=== PATIENT | female | born 1980 | race Caucasian/White ===

== ENCOUNTER 2021-10-02 23:05 | Day surgery (SDC) | payer OTHER ==
[~2021-10-02] VITALS: Ht 165 cm; Wt 66.5 kg
[2021-10-02] MEDS ORDERED: DEXT10TA9 PO (23:24)
--- NOTE | 2021-10-02 23:53 | ED Abdominal Pain ---
General Chief Complaint: Abdominal/GI Problems Stated Complaint: ABD PAIN,NAUSEA,LIGHTHEADED Nursing Triage Note: interittant abdominal pain, nausea, since 1700 Source of Information: Patient, Family Exam Limitations: No Limitations History of Present Illness Date Seen by Provider: Oct 02, 2021 Time Seen by Provider: 23:40 Initial Comments Patient is a 41-year-old female who presents to the emergency department today with a chief complaint of lower abdominal pain/cramping, nausea. Patient states onset of nausea was at about 5:00 this evening. She took some Zofran, 8 mg and lay down to take a nap. She woke up and had an urge to urinate. She describes having a syncopal episode where her head got tingly she felt hot and she passed out in the bathroom floor. She did not injure herself. Patient states she has not had any diarrhea, she does not have the urge to have a bowel movement. Her last normal bowel movement was 2 days ago. Nonblack nonbloody. She has had a hysterectomy. No history of colon disorders that she is aware of. She did take some ibuprofen or "dual action" ibuprofen prior to arrival. No recent fevers but she does feel chilled. No cough or congestion. No shortness of breath. She is still slightly nauseated and she states her pain gets worse when she stands up and moves around. She denies any abnormal vaginal discharge. She still has her appendix and her gallbladder. She has had a partial hysterectomy. All other review of systems reviewed and negative except as stated. Timing/Duration: 4-6 Hours Severity/Quality: Moderate Location: Other (lower abdomen) Modifying Factors: Improves With Other (standing up worsens symptoms; complains of dry mouth) Associated Symptoms: Nausea/Vomiting, Other (syncopal episode) Allergies and Home Medications Allergies Coded Allergies: No Known Drug Allergies (Unverified , 10/02/21) Patient Home Medication List Home Medication List Reviewed: Yes Dextroamphetamine/Amphetamine (Adderall 10 mg Tablet) 10 Mg Tablet, Unknown Dose PO, (Reported) Entered as Reported by: MICHELLE LOMAX on 10/02/21 2670 Last Action: New Order Review of Systems Review of Systems Constitutional: see HPI EENTM: Other (dry mouth) Respiratory: No Symptoms Reported Cardiovascular: No Symptoms Reported Gastrointestinal: Abdominal Pain (lower), Nausea Genitourinary: Urgency Musculoskeletal: no symptoms reported Skin: no symptoms reported Psychiatric/Neurological: Other (syncopla episode) All Other Systems Reviewed Negative Unless Noted: Yes Past Shfrvob-Fceyco-Xiuzsv Hx Patient Social History Tobacco Use?: No Substance use?: No Alcohol Use?: Yes Alcohol type: Hard Liquor Alcohol Frequency: Couple times a week Pt feels they are or have been: No Past Medical History Surgery/Hospitalization HX: partial hysto., ovarian cyst, htn, adhd Physical Exam Vital Signs Vital Signs - First Documented 10/02/21 23:15 Temp 36.0 Pulse 66 Resp 20 B/P (MAP) 103/72 (82) Pulse Ox 100 O2 Delivery Room Air Capillary Refill : Less Than 3 Seconds Height/Weight/BMI Height: '" Weight: lbs. oz. kg; 23.00 BMI Method: General Appearance: WD/WN, no apparent distress HEENT: other (dry oral mucosa) Neck: normal inspection Respiratory: lungs clear, normal breath sounds, no respiratory distress, no accessory muscle use Cardiovascular: regular rate, rhythm (70's) Gastrointestinal: soft, tenderness (suprapubic, RLQ and LLQ; normal bowel sounds) Extremities: normal range of motion, normal inspection Neurologic/Psychiatric: alert, normal mood/affect, oriented x 3 Skin: normal color, warm/dry Progress/Results/Core Measures Results/Orders Lab Results Laboratory Tests Test 10/02/21 23:22 Range/Units White Blood Count 14.2 H 4.3-11.0 10^3/uL Red Blood Count 4.03 3.80-5.11 10^6/uL Hemoglobin 12.1 11.5-16.0 g/dL Hematocrit 37 35-52 % Mean Corpuscular Volume 92 80-99 fL Mean Corpuscular Hemoglobin 30 25-34 pg Mean Corpuscular Hemoglobin Concent 33 32-36 g/dL Red Cell Distribution Width 12.6 10.0-14.5 % Platelet Count 308 130-400 10^3/uL Mean Platelet Volume 9.1 9.0-12.2 fL Immature Granulocyte % (Auto) 0 % Neutrophils (%) (Auto) 90 H 42-75 % Lymphocytes (%) (Auto) 7 L 12-44 % Monocytes (%) (Auto) 3 0-12 % Eosinophils (%) (Auto) 0 0-10 % Basophils (%) (Auto) 0 0-10 % Neutrophils # (Auto) 12.7 H 1.8-7.8 10^3/uL Lymphocytes # (Auto) 0.9 L 1.0-4.0 10^3/uL Monocytes # (Auto) 0.5 0.0-1.0 10^3/uL Eosinophils # (Auto) 0.0 0.0-0.3 10^3/uL Basophils # (Auto) 0.0 0.0-0.1 10^3/uL Immature Granulocyte # (Auto) 0.1 0.0-0.1 10^3/uL Neutrophils % (Manual) 71 % Lymphocytes % (Manual) 7 % Band Neutrophils 17 % Urine Color YELLOW Urine Clarity CLEAR Urine pH 8.0 5-9 Urine Specific [place] 1.015 L 1.016-1.022 Urine Protein 1+ H NEGATIVE Urine Glucose (UA) NEGATIVE NEGATIVE Urine Ketones 1+ H NEGATIVE Urine Nitrite NEGATIVE NEGATIVE Urine Bilirubin NEGATIVE NEGATIVE Urine Urobilinogen 1.0 < = 1.0 MG/DL Urine Leukocyte Esterase NEGATIVE NEGATIVE Urine RBC (Auto) NEGATIVE NEGATIVE Urine RBC 0-2 /HPF Urine WBC 5-10 H /HPF Urine Squamous Epithelial Cells 0-2 /HPF Urine Crystals NONE /LPF Urine Bacteria FEW H /HPF Urine Casts PRESENT /LPF Urine Hyaline Casts 0-2 H /LPF Urine Mucus LARGE H /LPF Urine Culture Indicated YES Sodium Level 138 135-145 MMOL/L Potassium Level 3.5 L 3.6-5.0 MMOL/L Chloride Level 102 98-107 MMOL/L Carbon Dioxide Level 24 21-32 MMOL/L Anion Gap 12 5-14 MMOL/L Blood Urea Nitrogen 18 7-18 MG/DL Creatinine 0.78 0.60-1.30 MG/DL Estimat Glomerular Filtration Rate 81 BUN/Creatinine Ratio 23 Glucose Level 139 H 70-105 MG/DL Calcium Level 8.8 8.5-10.1 MG/DL Corrected Calcium 8.8 8.5-10.1 MG/DL Total Bilirubin 0.6 0.1-1.0 MG/DL Aspartate Amino Transf (AST/SGOT) 14 5-34 U/L Alanine Aminotransferase (ALT/SGPT) 12 0-55 U/L Alkaline Phosphatase 60 40-136 U/L Total Protein 6.6 6.4-8.2 GM/DL Albumin 4.0 3.2-4.5 GM/DL My Orders Orders - WILLIAM RICE MD Ed Iv/Invasive Line Start (10/02/21 23:47) Cbc With Automated Diff (10/02/21 23:47) Comprehensive Metabolic Panel (10/02/21 23:47) Ua Culture If Indicated (10/02/21 23:47) Ns Iv 1000 Ml (Sodium Chloride 0.9%) (10/03/21 00:00) Metoclopramide Injection (Reglan Injecti (10/03/21 00:00) Diphenhydramine Injection (Benadryl Inje (10/03/21 00:00) Manual Differential (10/02/21 23:22) Urine Culture (10/02/21 23:22) Ct Abdomen/Pelvis Wo (10/03/21 00:24) Medications Given in ED Current Medications Medications Dose Ordered Sig/Leni Route Start Time Stop Time Status Last Admin Dose Admin Diphenhydramine HCl 25 mg ONCE ONCE IV 10/03/21 00:00 10/03/21 00:01 DC 10/02/21 23:57 25 MG Metoclopramide HCl 5 mg ONCE ONCE IVP 10/03/21 00:00 10/03/21 00:01 DC 10/02/21 23:56 5 MG Vital Signs/I&O 10/02/21 23:15 Temp 36.0 Pulse 66 Resp 20 B/P (MAP) 103/72 (82) Pulse Ox 100 O2 Delivery Room Air Blood Pressure Mean: 82 Diagnostic Imaging Diagonstic Imaging: CT Comments CT abdomen and pelvis per stat rad 1. Enlarged appendix measuring 1.4 cm in largest transverse dimension with diffuse thickening of the wall of the appendix and surrounding inflammatory fat stranding suspicious for uncomplicated acute appendicitis #2 bilateral basilar atelectatic pulmonary changes 3. Moderate amount of fecal residue in the large bowel suggestive of moderate constipation. 4. Moderate small bowel ileus in the right lower quadrant 5. Enlarged right ovary possibly secondary to an ovarian cyst. 6 mild amount of reactive free pelvic fluid. Departure Communication (Admissions) Time/Spoke to Admitting Phy: 02:[address] Osborne Impression Primary Impression: Appendicitis Qualified Codes: K35.30 - Acute appendicitis with localized peritonitis, without perforation or gangrene Disposition: ADMITTED INPATIENT Condition: Stable Admissions Decision to Admit Reason: Admit from ER (General) Decision to Admit/Date: Oct 03, 2021 Time/Decision to Admit Time: 02:28 Departure-Patient Inst. Referrals: NO,LOCAL PHYSICIAN (PCP) Primary Care Physician WILLIAM RICE MD Oct 02, 2021 23:53
[2021-10-02 23:55] LABS: BILIRUBIN,URINE NEGATIVE (NEGATIVE); CLARITY,URINE CLEAR; COLOR,URINE YELLOW; GLUCOSE, URINE (UA) NEGATIVE (NEGATIVE); KETONES,URINE 1+ (NEGATIVE); LEUKOCYTE ESTERASE ,URINE NEGATIVE (NEGATIVE); NITRITE,URINE NEGATIVE (NEGATIVE); PROTEIN,URINE 1+ (NEGATIVE)
[2021-10-02 23:56] LABS: BASOPHILS % (AUTO) 0 % (0-10); EOSINOPHILS % (AUTO) 0 % (0-10); HEMATOCRIT 37 % (35-52); HEMOGLOBIN 12.1 g/dL (11.5-16.0); LYMPHOCYTES # (AUTO) 0.9 10^3/uL (1.0-4.0); LYMPHOCYTES % (AUTO) 7 % (12-44); MEAN CORPUSCULAR HEMOGLOBIN 30 pg (25-34); MEAN CORPUSCULAR HGB CONC 33 g/dL (32-36); MEAN CORPUSCULAR VOLUME 92 fL (80-99); MEAN PLATELET VOLUME 9.1 fL (9.0-12.2); MONOCYTES # (AUTO) 0.5 10^3/uL (0.0-1.0); MONOCYTES % (AUTO) 3 % (0-12); NEUTROPHILS # (AUTO) 12.7 10^3/uL (1.8-7.8); NEUTROPHILS % (AUTO) 90 % (42-75); PLATELET COUNT 308 10^3/uL (130-400); WHITE BLOOD COUNT 14.2 10^3/uL (4.3-11.0)
[2021-10-03] VITALS (15 sets, daily range): BP systolic 103–132; BP diastolic 67–90
[2021-10-03] MEDS ORDERED: diphenhydrAMINE 50 MG/ML INJ (BENADRYL) IV ONE
[2021-10-03] MEDS ORDERED: METOCLOPRAMIDE INJ 10 MG/2 ML (REGLAN) IVP ONE
[2021-10-03 00:09] LABS: POTASSIUM 3.5 MMOL/L (3.6-5.0)
[2021-10-03 00:10] LABS: BACTERIA,URINE FEW /HPF; CALCIUM 8.8 MG/DL (8.5-10.1); HYALINE CASTS, URINE 0-2 /LPF; RBC,URINE 0-2 /HPF; SQUAMOUS EPITHELIAL CELL,UR 0-2 /HPF
[2021-10-03 00:12] LABS: TOTAL PROTEIN 6.6 GM/DL (6.4-8.2)
[2021-10-03 00:13] LABS: BILIRUBIN,TOTAL 0.6 MG/DL (0.1-1.0)
[2021-10-03 00:15] LABS: CREATININE SERUM 0.78 MG/DL (0.60-1.30)
[2021-10-03 00:19] LABS: BAND NEUTROPHILS 17 %; LYMPHOCYTES % (MANUAL) 7 %; NEUTROPHILS % (MANUAL) 71 %
[2021-10-03] MEDS ORDERED: fentaNYL INJ 100 MCG/2 ML AMP IVP ONE (02:30)
[2021-10-03] MEDS: NS IV 1000 ML 1,000 ML IV SCH ×3 (02:33→23:28)
[2021-10-03] MEDS ORDERED: PIPERACILLIN SODIUM/TAZOBACTAM 4.5 GM in NS (IVPB) 100 ML IV ONE (02:45)
[2021-10-03] MEDS ORDERED: NS IV 1000 ML 1,000 ML IV SCH ×2 (04:00)
[2021-10-03] MEDS ORDERED: ONDANSETRON 4 MG/2 ML (SDV) Z0FRAN IVP PRN ×2 (04:00→11:30)
--- NOTE | 2021-10-03 05:22 | Diagnostic Imaging Report ---
PROCEDURE: CT abdomen and pelvis without contrast. TECHNIQUE: Multiple contiguous axial images were obtained through the abdomen and pelvis without the use of intravenous contrast. Auto Exposure Controls were utilized during the CT exam to meet ALARA standards for radiation dose reduction. INDICATION: Abdominal pain with nausea x7 hours Lung bases are clear. Liver appears normal. Gallbladder is distended. Common duct is not dilated. Pancreas appears normal. Spleen is not enlarged. Adrenals appear normal. The kidneys are unremarkable. Small bowel is not dilated. There is large amount of stool throughout the colon. The appendix is difficult to discretely discern because of paucity of fat. Urinary bladder is unremarkable. Uterus appears to be absent. IMPRESSION: Loss of fat planes in the pelvis could in part be due to inflammatory changes that may or may not involve the appendix. Further evaluation with contrast CT might be helpful to exclude appendicitis. Dictated by: Dictated on workstation # [id number]
[2021-10-03] MEDS: fentaNYL INJ 100 MCG/2 ML AMP IVP PRN ×5 (05:33→20:32)
--- NOTE | 2021-10-03 07:04 | History & Physical-Surgical ---
VARHSA LYON 10/03/21 0704: History of Present Illness History of Present Illness Reason for visit/HPI Ms. Nicole is a 41yo female with past medical history of ADHD and hypertension who began having RLQ abdominal pain at 5pm on 10/02. The pain has been constant, sharp, and has now become diffuse. She rates it at 8/10 and now radiates to her back. It improves with sleep and worse with movement. She complains of nausea and "dry heaving" with an episode of syncope. She states she took a nap yesterday and woke up with an urge to urinate, went to the bathroom, felt "hot and tingly" and then woke up on the floor. She has no chest pain, shortness of breath, or diarrhea. Her last bowel movement was 2 days ago. Date of Admission Oct 03, 2021 at 02:32 Time Seen by a Provider: 06:45 I consulted on this patient on 10/03/21 06:59 Attending Physician Jose Cash DO Admitting Physician No,Local Physician Consult Allergies and Home Medications Allergies Coded Allergies: No Known Drug Allergies (Unverified , 10/02/21) Patient Home Medication List Ascorbic Acid/Elderberry Fruit (Elderberry-Vit C 50-100 mg Chw) 1 Each Tab.chew, 1 EACH PO DAILY, (Reported) Entered as Reported by: JUDITH DUNCAN on 10/03/2131 Last Action: Reviewed Cholecalciferol (Vitamin D3) (Vitamin D3) 25 Mcg Capsule, 25 MCG PO DAILY, (Reported) Entered as Reported by: JUDITH DUNCAN on 10/03/21 08 Last Action: Reviewed Cyanocobalamin (Vitamin B-12) (Vitamin B-12) 1,000 Mcg Capsule, 1,000 MCG PO DAILY, (Reported) Entered as Reported by: JUDITH DUNCAN on 10/03/21 08 Last Action: Reviewed Dextroamphetamine/Amphetamine (Adderall 20 mg Tablet) 20 Mg Tablet, 20 MG PO BID, (Reported) Entered as Reported by: JUDITH DUNCAN on 10/03/21 0816 Last Action: Reviewed Dextroamphetamine/Amphetamine (Adderall 10 mg Tablet) 10 Mg Tablet, 10 MG PO DAILY, (Reported) Entered as Reported by: JUDITH DUNCAN on 10/03/21 0817 Last Action: Reviewed Esomeprazole Magnesium (Nexium 24Hr) 20 Mg Capsule.dr, 20 MG PO DAILY PRN for HEARTBURN, (Reported) Entered as Reported by: JUDITH DUNCAN on 10/03/21828 Last Action: Reviewed Magnesium Oxide (Magnesium) 400 Mg Tablet, 400 MG PO DAILY, (Reported) Entered as Reported by: JUDITH DUNCAN on 10/03/21827 Last Action: Reviewed Metoprolol Tartrate (Metoprolol Tartrate) 25 Mg Tablet, 25 MG PO DAILY, (Reported) Entered as Reported by: JUDITH DUNCAN on 10/03/21824 Last Action: Reviewed Niacin (Niacin) 500 Mg Tablet, 500 MG PO DAILY, (Reported) Entered as Reported by: JUDITH DUNCAN on 10/03/21827 Last Action: Reviewed Ondansetron (Ondansetron Odt) 8 Mg Tab.rapdis, 8 MG PO Q8H PRN for NAUSEA/VOMITING-1ST LINE, (Reported) Entered as Reported by: JUDITH DUNCAN on 10/03/21825 Last Action: Reviewed Discontinued Medications Dextroamphetamine/Amphetamine (Adderall 10 mg Tablet) 10 Mg Tablet, Unknown Dose PO, (Reported) Discontinued Reason: No Longer Taking Entered as Reported by: MICHELLE LOMAX on 10/02/215 Last Action: Discontinued Past Srzwujx-Yjgsha-Cqydrq Hx Patient Social History Tobacco Use?: No Substance use?: No Alcohol Use?: Yes Alcohol type: Hard Liquor (15 drinks per week ) Alcohol Frequency: Couple times a week Pt feels they are or have been: No Immunizations Up To Date First/Initial COVID19 Vaccinat: NONE Tetanus Booster (TDap): Unknown Current Status status: No status: No Advance Directives: No Communicates: Verbally Primary Language: Kyrgyz Preferred Spoken Language: Kyrgyz Is interpretation needed?: No Implanted or Applied Medical D: None, Other (breast augmentation) Past Medical History Surgeries: Hysterectomy (Partial ) [facility] History: Hysterectomy (Partial ) ADD/ADHD Family Medical History Hypertension Review of Systems Constitutional: chills; No fever, No weight loss EENTM: No hearing loss, No blurred vision Respiratory: No dyspnea on exertion, No short of breath Cardiovascular: No chest pain; edema (Legs swell at end of day ) Gastrointestinal: abdominal pain (RLQ has now become diffuse ); No constipation, No diarrhea; nausea, vomiting Genitourinary: No dysuria, No frequency Musculoskeletal: No muscle pain, No muscle weakness Skin: No dryness, No lesions Psychiatric/Neurological: Denies Headache, Denies Numbness Physical Exam Vital Signs Vital Signs - First Documented 10/02/21 10/03/21 23:15 04:31 Temp 36.0 Pulse 66 Resp 20 B/P (MAP) 103/72 (82) Pulse Ox 100 O2 Delivery Room Air FiO2 21 Capillary Refill : Less Than 3 Seconds Height, Weight, BMI Height: '" Weight: lbs. oz. kg; 24.42 BMI Method: General Appearance: No Apparent Distress, WD/WN HEENT: PERRL/EOMI, Normal ENT Inspection Neck: Normal Inspection, Non Tender Respiratory: Chest Non Tender, Lungs Clear, Normal Breath Sounds, No Accessory Muscle Use, No Respiratory Distress Cardiovascular: Regular Rate, Rhythm, No Edema, Normal Peripheral Pulses Gastrointestinal: Guarding, Rebound, Tenderness Back: Normal Inspection, Other (Diffuse abdominal pain radiating to back ) Extremity: Normal Inspection, Non Tender, No Pedal Edema Neurologic/Psychiatric: Alert, Oriented x3, No Motor/Sensory Deficits, Normal Mood/Affect Skin: Normal Color, Warm/Dry Lymphatic: No Adenopathy Data Review Labs Laboratory Tests 10/02/21 23:22: White Blood Count 14.2H, Red Blood Count 4.03, Hemoglobin 12.1, Hematocrit 37, Mean Corpuscular Volume 92, Mean Corpuscular Hemoglobin 30, Mean Corpuscular Hemoglobin Concent 33, Red Cell Distribution Width 12.6, Platelet Count 308, Mean Platelet Volume 9.1, Immature Granulocyte % (Auto) 0, Neutrophils (%) (Auto) 90H, Lymphocytes (%) (Auto) 7L, Monocytes (%) (Auto) 3, Eosinophils (%) (Auto) 0, Basophils (%) (Auto) 0, Neutrophils # (Auto) 12.7H, Lymphocytes # (Auto) 0.9L, Monocytes # (Auto) 0.5, Eosinophils # (Auto) 0.0, Basophils # (Auto) 0.0, Immature Granulocyte # (Auto) 0.1, Neutrophils % (Manual) 71, Lymphocytes % (Manual) 7, Band Neutrophils 17, Urine Color YELLOW, Urine Clarity CLEAR, Urine pH 8.0, Urine Specific [place] 1.015L, Urine Protein 1+H, Urine Glucose (UA) NEGATIVE, Urine Ketones 1+H, Urine Nitrite NEGATIVE, Urine Bilirubin NEGATIVE, Urine Urobilinogen 1.0, Urine Leukocyte Esterase NEGATIVE, Urine RBC (Auto) NEGATIVE, Urine RBC 0-2, Urine WBC 5-10H, Urine Squamous Epithelial Cells 0-2, Urine Crystals NONE, Urine Bacteria FEWH, Urine Casts PRESENT, Urine Hyaline Casts 0-2H, Urine Mucus LARGEH, Urine Culture Indicated YES, Sodium Level 138, Potassium Level 3.5L, Chloride Level 102, Carbon Dioxide Level 24, Anion Gap 12, Blood Urea Nitrogen 18, Creatinine 0.78, Estimat Glomerular Filtration Rate 81, BUN/Creatinine Ratio 23, Glucose Level 139H, Calcium Level 8.8, Corrected Calcium 8.8, Total Bilirubin 0.6, Aspartate Amino Transf (AST/SGOT) 14, Alanine Aminotransferase (ALT/SGPT) 12, Alkaline Phosphatase 60, Total Protein 6.6, Albumin 4.0 10/03/21 03:37: SARS-CoV-2 RNA (RT-PCR) Not Detected Radiology NAME: ADAM NICOLE [facility] REC#: [id number] PT STATUS: ADM Zen : 1980 PHYSICIAN: WILLIAM RICE MD ADMIT DATE: 10/03/21 Signed Date of Exam:10/03/21 CT ABDOMEN/PELVIS WO PROCEDURE: CT abdomen and pelvis without contrast. TECHNIQUE: Multiple contiguous axial images were obtained through the abdomen and pelvis without the use of intravenous contrast. Auto Exposure Controls were utilized during the CT exam to meet ALARA standards for radiation dose reduction. INDICATION: Abdominal pain with nausea x7 hours Lung bases are clear. Liver appears normal. Gallbladder is distended. Common duct is not dilated. Pancreas appears normal. Spleen is not enlarged. Adrenals appear normal. The kidneys are unremarkable. Small bowel is not dilated. There is large amount of stool throughout the colon. The appendix is difficult to discretely discern because of paucity of fat. Urinary bladder is unremarkable. Uterus appears to be absent. IMPRESSION: Loss of fat planes in the pelvis could in part be due to inflammatory changes that may or may not involve the appendix. Further evaluation with contrast CT might be helpful to exclude appendicitis. Dictated by: Dictated on workstation # [id number] Dict: 10/03/21 0509 Trans: 10/03/21 0553 KENIA [id number] Interpreted by: NAOMIE OAKES MD Electronically signed by: NAOMIE OAKES MD 10/03/21 0553 Assessment/Plan Assessment/Plan Admission Diagonsis Abdominal pain Leukocytosis with neutrophilia Assessment/Plan Abdominal pain Leukocytosis Consider diagnostic laparoscopy Continue Zosyn Continue N.P.O. Continue IV fluids Continue pain management Continue JOSE Kohli DO 10/03/21 0841: History of Present Illness History of Present Illness Reason for visit/HPI CC: RLQ abdominal pain. 41 year old female rlq abdominal pain started yesterday. Sharp constant pain. Across lowrer abdomen. Movement makes worse. Laying still better. Having nausea no emesis. Pain 06/24. Had ct scan showing inflammatory changes around the cecum suggestive of appendicits, appendix not well visualized. WBC 14.2. Date Seen by a Provider: Oct 03, 2021 Allergies and Home Medications Allergies Coded Allergies: No Known Drug Allergies (Unverified , 10/02/21) Patient Home Medication List Home Medication List Reviewed: Yes Ascorbic Acid/Elderberry Fruit (Elderberry-Vit C 50-100 mg Chw) 1 Each Tab.chew, 1 EACH PO DAILY, (Reported) Entered as Reported by: JUDITH DUNCAN on 10/03/21 08 Last Action: Reviewed Cholecalciferol (Vitamin D3) (Vitamin D3) 25 Mcg Capsule, 25 MCG PO DAILY, (Reported) Entered as Reported by: JUDITH DUNCAN on 10/03/21 08 Last Action: Reviewed Cyanocobalamin (Vitamin B-12) (Vitamin B-12) 1,000 Mcg Capsule, 1,000 MCG PO DAILY, (Reported) Entered as Reported by: JUDITH DUNCAN on 10/03/21 08 Last Action: Reviewed Dextroamphetamine/Amphetamine (Adderall 20 mg Tablet) 20 Mg Tablet, 20 MG PO BID, (Reported) Entered as Reported by: JUDITH DUNCAN on 10/03/21 08 Last Action: Reviewed Dextroamphetamine/Amphetamine (Adderall 10 mg Tablet) 10 Mg Tablet, 10 MG PO DAILY, (Reported) Entered as Reported by: JUDITH DUNCAN on 10/03/21 08 Last Action: Reviewed Esomeprazole Magnesium (Nexium 24Hr) 20 Mg Capsule.dr, 20 MG PO DAILY PRN for HEARTBURN, (Reported) Entered as Reported by: JUDITH DUNCAN on 10/03/21828 Last Action: Reviewed Magnesium Oxide (Magnesium) 400 Mg Tablet, 400 MG PO DAILY, (Reported) Entered as Reported by: JUDITH DUNCAN on 10/03/21827 Last Action: Reviewed Metoprolol Tartrate (Metoprolol Tartrate) 25 Mg Tablet, 25 MG PO DAILY, (Reported) Entered as Reported by: JUDITH DUNCAN on 10/03/21824 Last Action: Reviewed Niacin (Niacin) 500 Mg Tablet, 500 MG PO DAILY, (Reported) Entered as Reported by: JUDITH DUNCAN on 10/03/21827 Last Action: Reviewed Ondansetron (Ondansetron Odt) 8 Mg Tab.rapdis, 8 MG PO Q8H PRN for NAUSEA/VOMITING-1ST LINE, (Reported) Entered as Reported by: JUDITH DUNCAN on 10/03/21825 Last Action: Reviewed Discontinued Medications Dextroamphetamine/Amphetamine (Adderall 10 mg Tablet) 10 Mg Tablet, Unknown Dose PO, (Reported) Discontinued Reason: No Longer Taking Entered as Reported by: MICHELLE LOMAX on 10/02/211 Last Action: Discontinued Past Qcsyhrd-Cqdrdg-Luhwov Hx Current Status Implanted or Applied Medical D: Other (breast augmentation) Past Medical History Surgeries: Breast, Hysterectomy (Partial ) [facility] History: Hysterectomy (Partial ) ADD/ADHD Family Medical History Reviewed Nursing Family Hx Hypertension Review of Systems Constitutional: No fever, No weight loss EENTM: No hearing loss, No ear pain Respiratory: No dyspnea on exertion, No short of breath Cardiovascular: No chest pain, No palpitations Gastrointestinal: abdominal pain (RLQ); No constipation, No diarrhea; nausea, vomiting Genitourinary: No dysuria, No frequency Musculoskeletal: No joint pain, No muscle pain, No muscle weakness Skin: No change in color, No change in hair/nails, No dryness, No lesions Psychiatric/Neurological: Denies Anxiety, Denies Depressed, Denies Emotional Problems, Denies Headache, Denies Numbness All Other Systems Reviewed Negative Unless Noted: Yes (Negative excepted noted.) Physical Exam General Appearance: No Apparent Distress, WD/WN HEENT: PERRL/EOMI, Normal ENT Inspection Neck: Normal Inspection, Non Tender Respiratory: Chest Non Tender, No Accessory Muscle Use, No Respiratory Distress Cardiovascular: Regular Rate, Rhythm, No JVD Gastrointestinal: Soft, Tenderness ( rlq) Rectal: Deferred Back: Normal Inspection Extremity: Normal Inspection, Non Tender Neurologic/Psychiatric: Alert, Oriented x3, No Motor/Sensory Deficits Skin: Normal Color, Warm/Dry Lymphatic: No Adenopathy Assessment/Plan Assessment/Plan Admission Diagonsis abdominal pain rlq appendicitis Admission Status: Observation Assessment/Plan abdominal pain appendicitis discussed risks and benefits of laparoscopic appendectomy all other indicated procedures she understands and wishes to proceed. Feel likely appendix even though not completely visualized on ct. She understands could be normal appendix. NPO IV hydration To OR. On Zosyn. Supervisory-Addendum Brief Verification & Attestation Participated in pt care: history, MDM, physical Personally performed: exam, history, MDM, supervision of care Care discussed with: Medical Student Procedures: n/a Results interpretation: Verified all documentation Verification and Attestation of Medical Student E/M Service A medical student performed and documented this service in my presence. I reviewed and verified all information documented by the medical student and made modifications to such information, when appropriate. I personally performed the physical exam and medical decision making. Jose Cash, Oct 03, 2021,08:45 VARSHA LYON Oct 03, 2021 07:04 JOSE CASH DO Oct 03, 2021 08:41
[2021-10-03] MEDS ORDERED: FLU QUADRIvalent (3YOA+) 60 mcg/0.5 ml 2021-22(AFLURIA) IM ONE (07:30)
[2021-10-03] MEDS ORDERED: AMPH20TA2 PO (08:16)
[2021-10-03] MEDS ORDERED: DEXT10TA9 PO (08:17)
[2021-10-03] MEDS ORDERED: METO-333 PO (08:25)
[2021-10-03] MEDS ORDERED: ONDA8TAB13 PO (08:26)
[2021-10-03] MEDS ORDERED: CYAN-23 PO (08:27)
[2021-10-03] MEDS ORDERED: NIAC500T9 PO (08:28)
[2021-10-03] MEDS ORDERED: MAGN400T39 PO (08:28)
[2021-10-03] MEDS ORDERED: ESOM20CA58 PO (08:29)
[2021-10-03] MEDS ORDERED: CHOL100048 PO (08:30)
[2021-10-03] MEDS ORDERED: ASCO1TAB42 PO (08:31)
[2021-10-03] MEDS ORDERED: LIDOCAINE/EPI 1%-1:100,000 (XYLOCAINE) 20ML ONE (08:38)
[2021-10-03] MEDS: LACTATED RINGERS 1,000 ML IV PRN ×2 (09:15→10:00)
[2021-10-03] MEDS: PIPERACILLIN/TAZO 4.5 GM/NS 100 ML IV SCH ×4 (09:30→16:17)
[2021-10-03] MEDS ORDERED: fentaNYL INJ 100 MCG/2 ML AMP ONE ×2 (09:49→11:03)
[2021-10-03] MEDS ORDERED: MIDAZOLAM 2 MG/2 ML (VERSED) VIAL ONE (09:50)
[2021-10-03] MEDS ORDERED: GLYCOPYRROLATE 0.2 MG/ML (ROBINUL) 2 ML VIAL ONE (11:02)
[2021-10-03] MEDS ORDERED: LIDOCAINE PF 2% 5 ML (XYLOCAINE) VIAL ONE (11:02)
[2021-10-03] MEDS ORDERED: SUCCINYLCHOLINE INJ 100 MG/5 ML SYR/VIAL ONE (11:02)
[2021-10-03] MEDS ORDERED: SEVOFLURANE (ULTANE) 15 ML INHAL SOLN ONE (11:02)
[2021-10-03] MEDS ORDERED: ONDANSETRON 4 MG/2 ML (SDV) Z0FRAN ONE (11:02)
[2021-10-03] MEDS ORDERED: NEOSTIGMINE 3 MG/3 ML VIAL ONE (11:02)
[2021-10-03] MEDS ORDERED: proPOfol 200 MG/20 ML (DIPRIVAN) VIAL IV ONE (11:02)
[2021-10-03] MEDS ORDERED: ROCURONIUM 10 MG/ML 5 ML SYRINGE IV ONE (11:02)
--- NOTE | 2021-10-03 11:29 | Anesthesia-General Post-Op ---
General Patient Condition Mental Status/LOC: Same as Preop Cardiovascular: Satisfactory Nausea/Vomiting: Absent Respiratory: Satisfactory Pain: Controlled Complications: Absent Post Op Complications Complications None Follow Up Care/Instructions Patient Instructions None needed. Anesthesia/Patient Condition Patient Condition Patient is doing well, no complaints, stable vital signs, no apparent adverse anesthesia problems. No complications reported per nursing. GALILEO LUO CRNA Oct 03, 2021 11:29
[2021-10-03] MEDS ORDERED: HYDROmorphone 2 MG/ML VIAL (DILAUDID) IV ONE (11:30)
[2021-10-03] MEDS ORDERED: morphine INJ 10 MG/ML 1ML (SYR OR VIAL) IVP ONE (11:30)
[2021-10-03] MEDS ORDERED: CHLORASEPTIC LOZENGE MM PRN (19:00)
--- NOTE | 2021-10-03 19:10 | Progress Note-Post Operative ---
Post-Operative Progess Note Surgeon (s)/Adjunct Political Science Instructor (s) Surgeon JOSE CASH DO Adjunct Political Science Instructor: na Pre-Operative Diagnosis rlq abd pain, appendicitis Post-Operative Diagnosis same Procedure & Operative Findings Date of Procedure 10/03/21 Procedure Performed/Findings PROCEDURE: Laparoscopic appendectomy. COMPLICATIONS: None. INDICATIONS: The patient is a 41 year old female who has been having right lower quadrant abdominal pain. Patient's exam consistent with appendicitis. I discussed risk and benefits of laparoscopic appendectomy and all indicated procedures with the possibility being a normal appendix. The patient understands the risks and benefits and wishes to proceed. Consent was signed on the chart. DESCRIPTION OF PROCEDURE: The patient was taken to the operating suite, prepped and draped in a sterile fashion. Timeout was performed. Local anesthetic was infiltrated just above the umbilicus and 11-blade scalpel was used to make a skin incision. Cautery was used to dissect down to the fascia and scored. Kochers were used to grasp and elevate it and the abdomen was then entered. A 0 Vicryl was placed in a [id number] fashion for closure at the end of the case. The balloon trocar was inserted into the abdomen and pneumoperitoneum was achieved. Under direct visualization of the laparoscope, a 5 mm trocar was placed in the suprapubic region and a 5 mm trocar was placed in the left lower quadrant. Appendix was located, It was inflamed, the right ovary had fibrinous material around it. The tip of the appendix was fixed in the right lower quadrant. The base of the appendix was dissected around. Once at the base an Endo-CONSTANZA 2.5 stapler was then fired across the base of the appendix. The mesoappendix was then divided using ligasure up against the appendix. Once at the distal portion Of the appendix this was started through a defect created by the peritoneum. With traction and blunt dissection this opening was able to be open in the distal portion of the appendix was able to be pulled through the defect. It was then placed in an Endobag and removed through the 12 mm trocar site. The abdomen was then irrigated and suctioned. No other pathology noted. The abdomen was then desufflated and the trocars were removed. The 0 Vicryl placed at the beginning of the case was then tied closing the 12 mm fascial defect. The skin was then closed using 4-0 Monocryl in a subcuticular fashion. The abdomen was then washed and dried and Skin Affix was placed over the incisions. The patient tolerated the procedure well without any complications and was taken to the recovery room in stable condition. Anesthesia Type general Estimated Blood Loss Estimated blood loss (mL): minimal Specimens/Packing Specimens Removed appendix JOSE CASH DO Oct 03, 2021 19:10
[2021-10-03] MEDS ORDERED: DOCU-143 PO (19:12)
[2021-10-03] MEDS ORDERED: ACHD5005 PO (19:12)
[2021-10-03] MEDS ORDERED: AMOX-358 PO (19:12)
--- NOTE | 2021-10-03 19:14 | Discharge Inst-Simple/Standard ---
Discharge Inst-Standard Discharge Medications New, Converted or Re-Newed RX: Transmitted to Pharmacy Patient Instructions/Follow Up Plan of Care/Instructions/FU: [facility] 2-3 weeks. Activity as Tolerated: Yes Discharge Diet: Regular Diet Other Inst to Patient Follow up Appt: Make appointment for 2-[address] Osborne Instructions: No lifting greater than 10 pounds. No strenuous activity. May shower in 24 hours, no tub bath or soaking. Use incentive spirometer at home as directed. No Smoking Skin/Wound Care: You have special glue over your incision that will fall off on it's own. Symptoms to Report: Appetite Changes, Extremity Discoloration, Numbness/Tingling, Swelling Increased, Bleeding Excessive, Eyesight Changes, Pain Increased, Urine Color Change, Constipation(Persistent), Fever over 101 degree F, Pain/Pressure in chest, Urinating Difficulty, Cough Up/Vomit Blood, Heart Beat Irreg/Pounding, Pain/Pressure in jaw, Vaginal Bleeding Increase, Cramps in feet or legs, Lightheadedness, Pain/Pressure in shoulder, Diarrhea(Persistent), Memory Changes Suddenly, Questions/Concerns, Weight gain consecutive days, Dizziness/Fainting, Nausea/Vomiting, Shortness of Breath, Weight gain over 2 pounds If questions or concerns contact your physician Or seek help at emergency department. JOSE OSBORNE DO Oct 03, 2021 19:14
[2021-10-04] MEDS: PIPERACILLIN/TAZO 4.5 GM/NS 100 ML IV SCH ×4 (00:40→08:34)
[2021-10-04] MEDS: fentaNYL INJ 100 MCG/2 ML AMP IVP PRN ×4 (02:35→12:14)
[2021-10-04 04:11] VITALS: BP 128/85
[2021-10-04 08:00] VITALS: BP 127/87
--- NOTE | 2021-10-04 08:53 | Progress Note - Surgery ---
NORBERTOSHEBA 10/04/21 0853: Subjective Date Seen by a Provider: Oct 04, 2021 Time Seen by a Provider: 07:42 Subjective/Events-last exam PT is POD 1 for appendectomy. Said she did have a salmon dinner last night and a light breakfast this morning with no issues. Has passed some gas since appendectomy. has not yet had a bowel movement. No bowel movement since coming into ED on 10/02 Trochar incisions appear clean, dry, and intact. Pt says she still has some diffuse abdominal pain and back pain. Review of Systems General: No Chills, No Night Sweats HEENT: No Head Aches, No Visual Changes Pulmonary: No Dyspnea, No Cough Cardiovascular: No: Chest Pain, Palpitations Gastrointestinal: Abdominal Pain, Constipation (No bowel movement since 10/02.), Other (Patient has passed gas since appendectomy yesterday. She has not had a bowel movement yet.); No: Nausea, Vomiting Genitourinary: No Dysuria, No Frequency Musculoskeletal: back pain; No: neck pain Neurological: No: Weakness, Numbness Objective Exam Vital Signs Date Time Temp Pulse Resp B/P (MAP) Pulse Ox O2 Delivery O2 Flow Rate FiO2 10/04/21 08:00 37.0 86 18 127/87 (100) 98 Room Air 10/04/21 04:11 36.7 78 18 128/85 (99) 97 Room Air 10/03/21 23:23 37.5 80 18 125/77 (93) 96 Room Air 10/03/21 20:30 Room Air 10/03/21 19:23 37.7 83 18 127/82 (97) 97 Room Air 10/03/21 16:00 37.5 83 20 132/86 (101) 99 Room Air 10/03/21 12:30 37.1 75 18 122/79 (93) 95 Room Air 10/03/21 12:15 Room Air 10/03/21 12:15 37 16 129/90 (103) 99 Room Air 10/03/21 12:10 16 129/90 (103) 99 Room Air 10/03/21 12:00 Room Air 10/03/21 12:00 16 128/89 (102) 99 Room Air 10/03/21 11:50 18 125/88 (100) 99 OxyMask 2 11/19/21 11:45 OxyMask 3 10/03/21 11:40 18 128/85 (99) 100 OxyMask 3 10/03/21 11:30 OxyMask 5 10/03/21 11:30 16 128/85 (99) 100 OxyMask 4 10/03/21 11:20 18 107/67 (80) 100 OxyMask 5 10/03/21 11:18 37.3 16 107/70 (82) 100 OxyMask 8 10/03/21 11:18 OxyMask 8 10/03/21 09:25 Room Air I & O 10/04/21 07:00 Intake Total 1880 ml Output Total 2100 ml Balance -220 ml Capillary Refill : Less Than 3 SecondsLess Than 3 Seconds General Appearance: No Apparent Distress, WD/WN HEENT: PERRL/EOMI, Normal ENT Inspection Neck: Full Range of Motion, Normal Inspection, Non Tender, Supple Respiratory: Chest Non Tender, Lungs Clear, Normal Breath Sounds, No Accessory Muscle Use, No Respiratory Distress Cardiovascular: Regular Rate, Rhythm, No Murmur Peripheral Pulses: 2+ Dorsalis Pedis (R), 2+ Left Dors-Pedis (L), 2+ Radial Pulses (R), 2+ Radial Pulses (L) Gastrointestinal: soft, tenderness (Diffuse abdominal pain/ache as patient describes; normoactive bowel sounds), other (Trochar incisions appear clean, dry, and intact. ) Extremity: Normal Inspection, Non Tender Neurologic/Psychiatric: Alert, Oriented x3, No Motor/Sensory Deficits Skin: Normal Color, Warm/Dry Lymphatic: No Adenopathy (Cervical and Supraclavicular) Assessment/Plan Assessment/Plan Assessment/Plan Appendectomy was completed on 10/03 POD #1. Incisions appear C/D/I Pt still having some abdominal pain and back pain. Pt has returned to a normal diet. Has not had a bowel movement since 10/02 Recommend miralax to help with bowel movement . FLOYD CARTAGENA DO 10/04/21 1224: Subjective Time Seen by a Provider: 10:11 Subjective/Events-last exam Pt seen and examined, appears comfortable. Complaints of some constipation, but pain is minimal. Review of Systems General: No Chills, No Night Sweats Pulmonary: No Dyspnea, No Cough Gastrointestinal: Abdominal Pain, Constipation (No bowel movement since 11/18.), Other (Patient has passed gas since appendectomy yesterday. She has not had a bowel movement yet.); No: Nausea, Vomiting Objective Exam General Appearance: No Apparent Distress, WD/WN Respiratory: Lungs Clear, Normal Breath Sounds, No Accessory Muscle Use, No Respiratory Distress Cardiovascular: Regular Rate, Rhythm, No Murmur Gastrointestinal: soft, tenderness (Diffuse abdominal pain/ache as patient describes; normoactive bowel sounds), other (Trochar incisions appear clean, dry, and intact. ) Assessment/Plan Assessment/Plan Assessment/Plan Constipation - will give Mg citrate Appendectomy was completed on 10/03 POD #1. Incisions appear C/D/I Pt still having some abdominal pain and back pain. Will D/C pt home and told her to follow up with [facility] as outpt. Supervisory-Addendum Brief Verification & Attestation Participated in pt care: history, MDM, physical Personally performed: exam, history, MDM, supervision of care Care discussed with: Medical Student Procedures: n/a Verification and Attestation of Medical Student E/M Service A medical student performed and documented this service. I then reviewed and verified all information documented by the medical student and made modifications to such information, when appropriate. I personally performed a physical exam, medical decision making and then discussed any differences between the notes and made revisions as necessary to create one note. Floyd Cartagena , 10/04/21 , 12:21 SHEBA THORNTON Oct 04, 2021 08:53 FLOYD CARTAGENA DO Oct 04, 2021 12:24
[2021-10-04] MEDS: NS IV 1000 ML 1,000 ML IV SCH (09:48)
[2021-10-04] MEDS ORDERED: MAGNESIUM CITRATE 300 ML BTL PO NR (11:45)
[2021-10-04 12:25] VITALS: BP 127/87
== END 2021-10-04 12:28 | disposition home or self-care (01) ==
LOC: ER 23:10 → SDC 23:11 → 4TH 23:11 → UNDOADMOB 10-03 02:32 → UNDODISOB 10-04 12:28 → SDC 10-04 12:28
PROVIDERS: ATTEND Surgery
DX: K35.80 Unspecified acute appendicitis (principal); K21.9 Gastro-esophageal reflux disease without esophagitis; F90.9 Attention-deficit hyperactivity disorder, unspecified type; I10 Essential (primary) hypertension; Z79.899 Other long term (current) drug therapy; Z90.710 Acquired absence of both cervix and uterus
CPT/HCPCS: 36415; 74176; 80053; 81000; 85007; 85027; 87081; 87088; 87636; 88304; 96361; 96374; 96375

== ENCOUNTER 2022-05-25 07:24 | Outpatient (CLI) | payer OTHER ==
[~2022-05-25] VITALS: Ht 165.1 cm; Wt 65.5 kg
[~2022-05-25 07:24] MED LIST: ACHD5005 PO; AMOX-358 PO; AMPH20TA2 PO; ASCO1TAB42 PO; CHOL100048 PO; CYAN-23 PO; DEXT10TA9 PO; DOCU-143 PO; ESOM20CA58 PO; MAGN400T39 PO; METO-333 PO; NIAC500T9 PO; ONDA8TAB13 PO
[2022-05-26] MEDS ORDERED: OMEP20TA56 PO (14:20)
== END 2022-05-26 14:48 | disposition home or self-care (01) ==
LOC: PREOP 07:24
PROVIDERS: ATTEND Surgery
DX: Z01.818 Encounter for other preprocedural examination (principal)